=== PATIENT | female | born 1975 | race Hispanic/Latino ===

== ENCOUNTER 2018-09-10 16:29 | Emergency (ER) | payer SELFPAY ==
[~2018-09-10] VITALS: Ht 154.9 cm; Wt 65.8 kg
--- OUTSIDE RECORDS SUMMARY | 2018-09-10 16:33 | XMS REPORT | Summary of Care ---
Author Author [facility] [place] Address Unknown Phone Unavailable Encounter HQ Romainntr_hannah(URIAH) [id number] Date(s): 07/24/15 - 07/24/15 [facility] [place] [address], [place] [id number] [place] [address] [phone] Discharge Disposition: Home Attending Physician: Sara Calvert MD Vital Signs No data available for this section Problem List No data available for this section Allergies, Adverse Reactions, Alerts Substance Reaction Severity Status NKDA Active Medications No data available for this section Results No data available for this section Immunizations No data available for this section Procedures No data available for this section Social History No data available for this section Assessment and Plan No data available for this section
--- OUTSIDE RECORDS SUMMARY | 2018-09-10 16:33 | XMS REPORT | Continuity of Care Document ---
Author Author [facility] Interface Address Unknown Phone Unavailable Problems Problem Status Onset Date Classification Date Reported Comments Source PELVIC PAIN Active 01/06/2016 [facility] Discharge Diagnosis: Lower abdominal pain, unspecified 12/28/2015 12/31/2015 [facility] ABD PAIN Active 12/28/2015 [facility] Z12.31 - ENCNTR SCREEN MAMMOGRAM FOR MA Active 05/27/2015 [facility] Medications Medication Details Route Status Patient Instructions Ordering Provider Order Date Source Dicyclomine Hydrochloride 20 MG Oral Tablet [Bentyl] 20 mg=1 tab, PO, QID-Before Meals, # 40 tab, 0 Refill(s) Active 12/28/2015 [facility] Sodium Chloride 0.154 MEQ/ML Injectable Solution 1,000 mL, 1,000 ml/hr, Infuse Over: 1 hr, Route: IV, ONCE, Priority: STAT, Dosing Weight 67.727 kg, Start date: 12/28/15 11:57:00 CDT, Duration: 1 doses or times, Stop date: 12/28/15 11:57:00 CDT Inactive 12/28/2015 [facility] Ondansetron 4 mg, Route: IVP, Drug form: INJ, ONCE, Dosing Weight 67.727, kg, Priority: STAT, Start date: 12/28/15 11:57:00 CDT, Stop date: 12/28/15 11:57:00 CDT Inactive 12/28/2015 [facility] Morphine 4 mg, Route: IVP, ONCE, Dosing Weight 67.727, kg, Priority: STAT, Start date: 12/28/15 11:57:00 CDT, Stop date: 12/28/15 11:57:00 CDT Inactive 12/28/2015 [facility] Allergies, Adverse Reactions, Alerts Substance Category Reaction Severity Reaction type Status Date Reported Comments Source aspirin Assertion Drug allergy Active [facility] ibuprofen Assertion Drug allergy Active [facility] naproxen Assertion Drug allergy Active [facility] Tylenol Assertion Drug allergy Active [facility] Immunizations Immunization Date Given Site Status Last Updated Comments Source Results Order Name Results Value Reference Range Date Interpretation Comments Source Pelvis w Pelvis Transvaginal US Pelvis w Pelvis Transvaginal US TRANSABDOMINAL PELVIC ULTRASOUND; TRANSVAGINAL ULTRASOUND: HISTORY: Pelvic pain for 3 weeks, LMP 12/23/2015. FINDINGS: Transabdominal and transvaginal evaluation of the pelvis was done. The uterus is 10.6 cm in length and 3.8 x 6.1 cm in transverse dimension.The endometrium is 7 mm in thickness. Nabothian cysts in the cervix are noted. There is a 2.6 cm mural fibroid in the anterior fundus. There is no evidence of intrauterine . The urinary bladder is unremarkable. The right ovary is 1.9 x 1.8 x 1.7 cm in size. The left ovary is 0.0 x 2.9 x 2.7 cm in size. There is a 2.5 cm cyst containing echoes in the left ovary. No other cysts or adnexal masses or free fluid are demonstrated. IMPRESSION: 1. Small uterine fibroid. 2. Complex left ovarian cyst. [id number] 01/15/2016 - - Read by: Agustin Russo MD Dictated Date/time: 01/15/16 12:14 Electronically Signed by: Agustin Russo MD 01/15/16 12:16 FINAL REPORT [facility] CHEM PANEL B/C Ratio 11 6 - 25 12/28/2015 [facility] CHEM PANEL AGAP 12.8 meq/L 10.0 - 20.0 12/28/2015 [facility] CHEM PANEL A/G Ratio 0.9 0.7 - 1.6 12/28/2015 [facility] CHEM PANEL Globulin 4.1 g/dL 2.0 - 4.0 12/28/2015 [facility] CHEM PANEL eGFR 92 mL/min/1.73m2 12/28/2015 Result Comment: The eGFR is calculated using the CKD-EPI formula. In most young, healthy individuals the eGFR will be >90 mL/min/1.73m2. The eGFR declines with age. An eGFR of 60-89 may be normal in some populations, particularly the elderly, for whom the CKD-EPI formula has not been extensively validated. Use of the eGFR is not recommended in the following populations: Individuals with unstable creatinine concentrations, including patients and those with serious co-morbid conditions. Patients with extremes in muscle mass or diet. The data above are obtained from the National Kidney Disease Education Program (NKDEP) which additionally recommends that when the eGFR is used in patients with extremes of body mass index for purposes of drug dosing, the eGFR should be multiplied by the estimated BMI. [facility] CHEM PANEL Creatinine Lvl 0.79 mg/dL 0.50 - 1.40 12/28/2015 [facility] CHEM PANEL Sodium Lvl 136 meq/L 135 - 145 12/28/2015 [facility] CHEM PANEL Glucose Lvl 99 mg/dL 70 - 99 12/28/2015 [facility] CHEM PANEL BUN 9 mg/dL 7 - 22 12/28/2015 [facility] CHEM PANEL Potassium Lvl 3.8 meq/L 3.5 - 5.1 12/28/2015 [facility] CHEM PANEL Chloride Lvl 103 meq/L 95 - 109 12/28/2015 [facility] CHEM PANEL CO2 24 meq/L 24 - 32 12/28/2015 [facility] CHEM PANEL Calcium Lvl 8.6 mg/dL 8.5 - 10.5 12/28/2015 [facility] CHEM PANEL Total Protein 7.9 g/dL 6.4 - 8.4 12/28/2015 [facility] CHEM PANEL Albumin Lvl 3.8 g/dL 3.5 - 5.0 12/28/2015 [facility] CHEM PANEL ALT 39 unit/L 0 - 65 12/28/2015 [facility] CHEM PANEL Alk Phos 62 unit/L 39 - 136 12/28/2015 [facility] CHEM PANEL AST 18 unit/L 0 - 37 12/28/2015 [facility] CHEM PANEL Bili Total 0.4 mg/dL 0.2 - 1.3 12/28/2015 [facility] CHEM PANEL Lipase Lvl 109 unit/L 73 - 393 12/28/2015 [facility] HEMATOLOGY Segs 90.5 % 45.0 - 75.0 12/28/2015 [facility] HEMATOLOGY Monocytes 1.8 % 2.0 - 12.0 12/28/2015 [facility] HEMATOLOGY Lymphocytes 7.5 % 20.0 - 40.0 12/28/2015 [facility] HEMATOLOGY Lymphocytes # 1.4 K/CMM 1.0 - 5.5 12/28/2015 [facility] HEMATOLOGY Basophils 0.2 % 0.0 - 1.0 12/28/2015 [facility] HEMATOLOGY Segs-Bands # 17.5 K/CMM 1.5 - 8.1 12/28/2015 [facility] HEMATOLOGY Monocytes # 0.3 K/CMM 0.0 - 0.8 12/28/2015 [facility] HEMATOLOGY MPV 8.5 fL 7.4 - 10.4 12/28/2015 [facility] HEMATOLOGY Platelet 269 K/CMM 133 - 450 12/28/2015 [facility] HEMATOLOGY RDW 14.5 % 11.5 - 14.5 12/28/2015 [facility] HEMATOLOGY RBC 4.70 M/CMM 4.20 - 5.40 12/28/2015 [facility] HEMATOLOGY WBC 19.3 K/CMM 3.7 - 10.4 12/28/2015 [facility] HEMATOLOGY Hgb 13.0 g/dL 12.0 - 16.0 12/28/2015 [facility] MCV 83.2 fL 80.0 - 98.0 12/28/2015 [facility] MCHC 33.2 g/dL 32.0 - 36.0 12/28/2015 [facility] MCH 27.7 pg 27.0 - 31.0 12/28/2015 [facility] Hct 39.1 % 36.0 - 48.0 12/28/2015 [facility] URINE AND STOOL UA Ketones Negative mg/dL Negative mg/dL 12/28/2015 [facility] URINE AND STOOL UA Leuk Est Negative (12/28/15 12:08 PM) Negative 12/28/2015 [facility] URINE AND STOOL UA Nitrite Negative (12/28/15 12:08 PM) Negative 12/28/2015 [facility] URINE AND STOOL UA Blood Negative (12/28/15 12:08 PM) Negative 12/28/2015 [facility] URINE AND STOOL UA Bili Negative *NA* (12/28/15 12:08 PM) Negative 12/28/2015 [facility] URINE AND STOOL UA Bacteria Occasional /HPF None Seen /HPF 12/28/2015 [facility] URINE AND STOOL UA RBC 2 /HPF 0 - 2 12/28/2015 [facility] URINE AND STOOL UA WBC null 0 - 5 12/28/2015 [facility] URINE AND STOOL UA Turbidity Clear (12/28/15 12:08 PM) Clear 12/28/2015 [facility] URINE AND STOOL UA Glucose Negative mg/dL Negative mg/dL 12/28/2015 [facility] URINE AND STOOL UA Protein Negative mg/dL Negative mg/dL 12/28/2015 [facility] URINE AND STOOL UA pH 6.0 5.0 - 8.0 12/28/2015 [facility] URINE AND STOOL UA Spec Grav 1.005 <=1.030 12/28/2015 [facility] URINE AND STOOL UA Sq Epi None Seen 12/28/2015 [facility] URINE AND STOOL UA Urobilinogen <=1.0 mg/dL 0.1 - 1.0 12/28/2015 [facility] URINE AND STOOL UA Color Colorless 12/28/2015 [facility] URINE CHEM U Preg Negative (12/28/15 12:08 PM) Negative 12/28/2015 [facility] ED Abdomen/Pelvis IV contrast only CT ED Abdomen/Pelvis IV contrast only CT Study: ED Abdomen/Pelvis IV contrast only CT Clinical Indication: Lower abdominal pain with diarrhea Comparison: None TECHNIQUE: Multiple axial CT images of the abdomen and pelvis were acquired following the administration of intravenous contrast. Sagittal and coronal reformatted images were performed. CT Radiation Dose DLP 1626.62 mGy-cm FINDINGS: Limited views of the lung bases show mild bibasilar atelectasis. The liver is diffusely low in attenuation, compatible with fatty infiltration. 1.8 cm hypodense cyst along the left hepatic lobe abutting the falciform ligament is seen. The bladder, pancreas, spleen, and adrenal glands are unremarkable. Multiple hypodense bilateral renal simple cysts are seen with largest measuring 1.4 cm in the left kidney. No intrahepatic or extrahepatic biliary duct dilatation is seen. Urinary bladder is well-distended. There is an ovoid 3.4 cm hypodense left ovarian cyst, may represent corpus luteal cyst. Cervical nabothian cysts are identified. 2.3 cm uterine leiomyoma is noted. The visualized hollow viscera and appendix are normal in appearance. No intraperitoneal free air, free fluid, or pathologic adenopathy is seen. The superficial soft tissues are unremarkable. No suspicious osseous lesions are seen. IMPRESSION: 1. No acute intra-abdominal/pelvic abnormality. 2. Hepatic steatosis. 3. 3.4 cm hypodense left ovarian cyst which may represent corpus luteal cyst. SL: [id number] 12/28/2015 - - Read by: Domingo Ornelas MD Dictated Date/time: 12/28/15 15:31 Electronically Signed by: Domingo Ornelas MD 12/28/15 15:35 FINAL REPORT [facility] Digital Mammo Screening [facility] MS Digital Mammo Screening [facility]ca MS - DIGITAL MAMMO SCREENING ANCA MA BILATERAL FIRST EVER DIGITAL SCREENING MAMMOGRAM WITH CAD: 07/24/2015 CLINICAL: Routine. Current study was evaluated with a Computer Aided Detection (CAD) system. No prior exams were available for comparison. The tissue of both breasts is heterogeneously dense, which could obscure detection of small masses. No significant masses, calcifications, or other findings are seen in either breast. IMPRESSION: NEGATIVE There is no mammographic evidence of malignancy. A 1 year screening mammogram is recommended. Toñito Kebede M.D. cm/penrad:07/27/2015 10:45:55 Career Services Manager: Gisella Lopez [facility] This exam was dictated and interpreted by [id number] for [place]. letter sent: Normal exam Mammogram BI-RADS: 1 Negative 07/24/2015 - - Read by: Solo Mccall MD Dictated Date/time: 07/27/15 10:45 Electronically Signed by: Solo Mccall MD 07/27/15 10:45 [facility] [place] Vital Sign[facility] Vital Sign Value Date Comments Source Heart Rate 77 12/28/2015 [facility] Systolic (mm Hg) 93 12/28/2015 [facility] Diastolic (mm Hg) 59 12/28/2015 [facility] Respitory Rate 18 12/28/2015 [facility] Temperature Oral (F) 98.3 F 12/28/2015 [facility] Weight 67.727 12/28/2015 [facility] Respitory Rate 18 12/28/2015 [facility] Heart Rate 102 12/28/2015 [facility] Systolic (mm Hg) 106 12/28/2015 [facility] Diastolic (mm Hg) 76 12/28/2015 [facility] Encounters Location Location Details Encounter Type Encounter Number Reason For Visit Attending Provider ADM Date DC Date Status Source [facility] [place] [facility] Di[facility] Services [id number] Sara Calvert 07/24/2015 [facility] [id number] Bertha Lucianof 12/28/2015 12/28/2015 [facility] [id number] Wilmer Hartman 01/15/2016 01/16/2016 [facility] Procedures Procedure Code Date Perfomer Comments Source
--- OUTSIDE RECORDS SUMMARY | 2018-09-10 16:33 | XMS REPORT | Summary of Care ---
Author Author [facility] Organization [facility] Address Unknown Phone Unavailable Encounter HQ Luis Albertor_hannah(URIAH) [id number] Date(s): 01/15/16 - 01/15/16 [facility] [address] [place] [address]- Discharge Disposition: Home or Self Care Attending Physician: Wilmer Hartman MD Referring Physician: Wilmer Hartman MD Vital Signs No data available for this section Problem List No data available for this section Allergies, Adverse Reactions, Alerts Substance Reaction Severity Status aspirin Active ibuprofen Active naproxen Active Tylenol Active Medications No data available for this section Results No data available for this section Immunizations No data available for this section Procedures No data available for this section Social History Social History Type Response Smoking Status Never smoker; Ready to change: No; Concerns about tobacco use in household: No; Exposure to Tobacco Smoke None; Cigarette Smoking Last 365 Days No; Reg Smoking Cessation Counseling No Assessment and Plan No data available for this section
--- OUTSIDE RECORDS SUMMARY | 2018-09-10 16:33 | XMS REPORT | Summary of Care ---
Author Author [facility] Organization [facility] Address Unknown Phone Unavailable Encounter JOCELYN [place](URIAH) [id number] Date(s): 12/28/15 - 12/28/15 [facility] [address] [place] [address]- [phone] Discharge Diagnosis: Lower abdominal pain, unspecified Discharge Disposition: Home Attending Physician: Bertha Kelley DO Vital Signs Most recent to 1 2 oldest [Reference Range]: Temperature Oral 98.3 DegF [96.4-99.1 DegF] (12/28/15 4:14 PM) Blood Pressure 93/59 mmHg 106/76 mmHg [90-140/60-90 mmHg] (12/28/15 4:14 PM) (12/28/15 11:19 AM) Respiratory Rate 18 BRMIN 18 BRMIN [14-20 BRMIN] (12/28/15 4:14 PM) (12/28/15 11:19 AM) Peripheral Pulse 77 bpm 102 bpm Rate [60-100 bpm] (12/28/15 4:14 PM) *HI* (12/28/15 11:19 AM) Weight 67.727 kg (12/28/15 11:19 AM) Problem List No data available for this section Allergies, Adverse Reactions, Alerts Substance Reaction Severity Status aspirin Active ibuprofen Active naproxen Active Tylenol Active Medications Bentyl 20 mg oral tablet 20 mg=1 tab, PO, QID-Before Meals, # 40 tab, 0 Refill(s) Start Date: 12/28/15 Stop Date: 01/07/16 Status: Ordered morphine Sulfate 4 mg, Route: IVP, ONCE, Dosing Weight 67.727, kg, Priority: STAT, Start date: 11:57:00 CDT, Stop date: 12/28/15 11:57:00 CDT Start Date: 12/28/15 Stop Date: 12/28/15 Status: Completed ondansetron 4 mg, Route: IVP, Drug form: INJ, ONCE, Dosing Weight 67.727, kg, Priority: STAT , Start date: 12/28/15 11:57:00 CDT, Stop date: 12/28/15 11:57:00 CDT Start Date: 12/28/15 Stop Date: 12/28/15 Status: Completed Sodium Chloride 0.9% (Bolus) IV 1,000 mL, 1,000 ml/hr, Infuse Over: 1 hr, Route: IV, ONCE, Priority: STAT, Dosin g Weight 67.727 kg, Start date: 12/28/15 11:57:00 CDT, Duration: 1 doses or time s, Stop date: 12/28/15 11:57:00 CDT Start Date: 12/28/15 Stop Date: 12/28/15 Status: Completed Results ELECTROLYTES Most recent to 1 oldest [Reference Range]: Sodium Lvl [135-145 136 mEq/L mEq/L] (12/28/15 12:08 PM) Potassium Lvl 3.8 mEq/L [3.5-5.1 mEq/L] (12/28/15 12:08 PM) Chloride Lvl [95-109 103 mEq/L mEq/L] (12/28/15 12:08 PM) CO2 [24-32 mEq/L] 24 mEq/L (12/28/15 12:08 PM) AGAP [10.0-20.0 12.8 mEq/L mEq/L] (12/28/15 12:08 PM) CHEM PANEL Most recent to 1 oldest [Reference Range]: Creatinine Lvl 0.79 mg/dL [0.50-1.40 mg/dL] (12/28/15 12:08 PM) eGFR 92 mL/min/1.73m2 1 *NA* (12/28/15 12:08 PM) BUN [7-22 mg/dL] 9 mg/dL (12/28/15 12:08 PM) B/C Ratio [6-25] 11 (12/28/15 12:08 PM) Glucose Lvl [70-99 99 mg/dL mg/dL] (12/28/15 12:08 PM) Total Protein 7.9 g/dL [6.4-8.4 g/dL] (12/28/15:08 PM) Albumin Lvl [3.5-5.0 3.8 g/dL g/dL] (12/28/1508 PM) Globulin [2.0-4.0 4.1 g/dL g/dL] *HI* (12/28/1508 PM) A/G Ratio [0.7-1.6] 0.9 (12/28/1508 PM) Calcium Lvl 8.6 mg/dL [8.5-10.5 mg/dL] (12/28/15:08 PM) ALT [0-65 unit/L] 39 unit/L (12/28/15 PM) AST [0-37 unit/L] 18 unit/L (12/28/1508 PM) Alk Phos [39-136 62 unit/L unit/L] (12/28/15:08 PM) Bili Total [0.2-1.3 0.4 mg/dL mg/dL] (12/28/1508 PM) Lipase Lvl [73-393 109 unit/L unit/L] (12/28/15:08 PM) 1Result Comment: The eGFR is calculated using the [...] from the National Kidney Disease Education Program ( NKDEP) which additionally recommends that when the eGFR is used in patients with extremes of body mass index for purposes of drug dosing, the eGFR should be mul tiplied by the estimated BMI. URINE CHEM Most recent to 1 oldest [Reference Range]: U Preg [Negative] Negative (12/28/15 12:08 PM) URINE AND STOOL Most recent to 1 oldest [Reference Range]: UA Turbidity [Clear] Clear (7/11/16 12:08 PM) UA Color Colorless *NA* (12/28/15 12:08 PM) UA pH [5.0-8.0] 6.0 (12/28/15 12:08 PM) UA Spec Grav 1.005 [<=1.030] (12/28/15 12:08 PM) UA Glucose [Negative Negative mg/dL mg/dL] *NA* (12/28/15 12:08 PM) UA Blood [Negative] Negative (12/28/15 12:08 PM) UA Ketones [Negative Negative mg/dL mg/dL] *NA* (12/28/15 12:08 PM) UA Protein [Negative Negative mg/dL mg/dL] (12/28/15 12:08 PM) UA Urobilinogen <=1.0 mg/dL [0.1-1.0 mg/dL] *NA* (12/28/15:08 PM) UA Bili [Negative] Negative *NA* (12/28/15 12:08 PM) UA Leuk Est Negative [Negative] (12/28/15 12:08 PM) UA Nitrite Negative [Negative] (12/28/15 12:08 PM) UA WBC [0-5 /HPF] <1 /HPF (12/28/15 12:08 PM) UA RBC [0-2 /HPF] 2 /HPF (12/28/15 12:08 PM) UA Bacteria [None Occasional /HPF Seen /HPF] *NA* (12/28/15 12:08 PM) UA Sq Epi None Seen *NA* (12/28/15 12:08 PM) HEMATOLOGY Most recent to 1 oldest [Reference Range]: WBC [3.7-10.4 K/CMM] 19.3 K/CMM *HI* (12/28/15 12:08 PM) RBC [4.20-5.40 4.70 M/CMM M/CMM] (12/28/15 12:08 PM) Hgb [12.0-16.0 g/dL] 13.0 g/dL (12/28/15 12:08 PM) Hct [36.0-48.0 %] 39.1 % (12/28/15 12:08 PM) MCV [80.0-98.0 fL] 83.2 fL (12/28/15 12:08 PM) MCH [27.0-31.0 pg] 27.7 pg (12/28/15 12:08 PM) MCHC [32.0-36.0 33.2 g/dL g/dL] (12/28/15 12:08 PM) RDW [11.5-14.5 %] 14.5 % (12/28/15 12:08 PM) Platelet [133-450 269 K/CMM K/CMM] (12/28/15 12:08 PM) MPV [7.4-10.4 fL] 8.5 fL (12/28/15 12:08 PM) Segs [45.0-75.0 %] 90.5 % *HI* (12/28/15 12:08 PM) Lymphocytes 7.5 % [20.0-40.0 %] *LOW* (12/28/15 12:08 PM) Monocytes [2.0-12.0 1.8 % %] *LOW* (12/28/15 12:08 PM) Basophils [0.0-1.0 0.2 % %] (12/28/15 12:08 PM) Segs-Bands # 17.5 K/CMM [1.5-8.1 K/CMM] *HI* (12/28/15 12:08 PM) Lymphocytes # 1.4 K/CMM [1.0-5.5 K/CMM] (12/28/15 12:08 PM) Monocytes # [0.0-0.8 0.3 K/CMM K/CMM] (12/28/15 12:08 PM) Immunizations No data available for this section [...]
[2018-09-10] MEDS ORDERED: PROPOFOL IV EMULSION 10 MG/ML 20 ML VIAL ONE (22:58)
[2018-09-10] MEDS ORDERED: PROPOFOL IV EMULSION 10MG/ML 100 ML ONE (22:59)
== END 2018-09-10 17:47 | disposition left against medical advice (07) ==
LOC: ER 16:29
DX: M25.561 Pain in right knee (principal)

== ENCOUNTER → 2024-01-01 | Outpatient (REF) | payer BC ==
[~2024-01-01] MED LIST: DICYCLOMINE HCL20 MG PO; PROTONIX20 MG PO
== END ==
LOC: NM 12:16
PROVIDERS: ATTEND Family Medicine
DX: R10.9 Unspecified abdominal pain (principal); K80.20 Calculus of gallbladder without cholecystitis without obstruction
CPT/HCPCS: 78227; A9537

== ENCOUNTER → 2024-02-16 | Day surgery (SDC) | payer BC ==
[2024-02-14 12:29] LABS: BASOPHILS % 0.3 % (0.0-1.0); EOSINOPHILS # (AUTO) 0.1 (0.0-0.4); EOSINOPHILS % 1.1 % (0.0-6.0); HEMOGLOBIN 11.9 g/dL (12.0-16.0); LYMPHOCYTES # (AUTO) 2.8 (1.0-3.2); MEAN CORPUSCULAR HEMOGLOBIN 28.3 pg (28-32); MEAN CORPUSCULAR HGB CONC 33.1 g/dL (31-35); MEAN CORPUSCULAR VOLUME 85.5 fL (81-99); MONOCYTES # (AUTO) 0.3 (0.2-0.8); MONOCYTES % 5.3 % (4.4-11.3); NEUTROPHILS # (AUTO) 3.2 (2.1-6.9); PLATELET COUNT 264 x10e3/uL (140-360); RED BLOOD COUNT 4.21 x10e6/uL (3.6-5.1); RED CELL DISTRIBUTION WIDTH 13.8 % (11.7-14.4); WHITE BLOOD COUNT 6.46 x10e3/uL (4.8-10.8)
[2024-02-14 12:55] LABS: ALBUMIN 3.9 g/dL (3.5-5.0); ALBUMIN/GLOBULIN RATIO 1.2 (0.8-2.0); ANION GAP 12.7 mmol/L (8-16); BILIRUBIN,TOTAL 0.3 mg/dL (0.2-1.2); CALCIUM 9.3 mg/dL (8.4-10.2); CREATININE, SERUM 0.86 mg/dL (0.57-1.11); POTASSIUM 3.7 mmol/L (3.5-5.1); TOTAL PROTEIN 7.1 g/dL (6.5-8.1)
[~2024-02-16] MED LIST changes: +ACETAMINOPHEN 1000 MG/100 ML IV ONE; +BUPIVACAINE 0.25% 30ML SDV ONE; +DEXAMETHASONE SOD PHOS INJ 4 MG/ML SDV ONE; +EPHEDRINE SULFATE INJ 50 MG/ML VIAL ONE; +FENTANYL CITRATE/PF 100MCG/2 ML INJ ONE; +LIDOCAINE HCL 2% LOCAL INJ 5 ML SDV VIAL INJ ONE; +MIDAZOLAM HCL 2 MG/2 ML VIAL ONE; +OMEPRAZOLE40 MG PO; +ONDANSETRON HCL INJ 2MG/ML 2ML 2 MG/ML VIAL ONE; +PROPOFOL IV EMULSION 10 MG/ML 20 ML VIAL ONE; +ROCURONIUM BROMIDE 10 MG/ML 5ML VIAL IV ONE; +SEVOFLURANE INHAL SOLN 250 ML PEN BTL ONE; +TYLENOL325 MG PO
[2024-02-16] MEDS: LACTATED RINGER'S 1,000 ML ONE (10:21)
[2024-02-16] MEDS: FENTANYL CITRATE/PF 100MCG/2 ML INJ ONE (12:00)
[2024-02-16 13:15] VITALS: BP 124/72; PULSE 54; RESP 14; O2SAT 97
== END | disposition home or self-care (01) ==
LOC: OR 06:57
PROVIDERS: ATTEND Surgery
DX: K80.10 Calculus of gallbladder with chronic cholecystitis without obstruction (principal); K21.9 Gastro-esophageal reflux disease without esophagitis; Z01.812 Encounter for preprocedural laboratory examination; Z79.899 Other long term (current) drug therapy
CPT/HCPCS: 36415; 47562; 80053; 85025; 88304; C1766; J0131; J1100; J2001; J2250; J2405; J2704; J3010; J7121